=== PATIENT | female | born 2000 | race Caucasian/White ===

== ENCOUNTER 2021-11-21 17:04 | Emergency (ER) | payer OTHER, SELFPAY ==
[2021-11-21 17:22] VITALS: BP 121/97; PULSE 88; RESP 18; TEMP 36.8; O2SAT 100
--- NOTE | 2021-11-21 17:32 | ED.EAR ---
HPI - Ear Problem General Chief complaint: Ear Stated complaint: rt ear pain Time Seen by Provider: 11/21/21 17:30 Source: patient Mode of arrival: ambulatory History of Present Illness HPI Narrative: Amber Parker is a 1 yo female no PMH [facility] complaints of right ear pain that started today. She states she has some congestion and always has some minor sinus congestion that she occasionally takes Zyrtec or something like to control congestion; her ear started hurting sharply today Related Data Home Medications Medication Instructions Recorded Confirmed levonorgestrel [Mirena] 1 device INTRAUTERINE ONCE 11/21/21 11/21/21 Allergies Allergy/AdvReac Type Severity Reaction Status Date / Time No Known Allergies Allergy Verified 11/21/21 17:25 Review of Systems Review of Systems: CONSTITUTIONAL: Denies fever, chills, sweats. EYES: Denies visual changes, redness, discharge. ENT: Denies rhinorrhea, congestion, sore throat, right otalgia. CARDIOVASCULAR: Denies chest pain, palpitations, edema. RESPIRATORY: Denies dyspnea, wheezing, cough GASTROINTESTINAL: Denies abdominal pain, nausea, vomiting, diarrhea. GENITOURINARY: Denies dysuria, hematuria, abnormal discharge SKIN: Denies rash or itching. NEUROLOGIC: Denies numbness, or focal weakness. PSYCHIATRIC: Denies anxiety or depression. [facility] Social History Social History Smoking status: Never smoker Alcohol intake: never Substance use: never Gender identity (if verbalized by the patient): Female Comments At time of signature, I agree with nursing past medical, surgical, social and family history. There is no relevant family history pertinent to the presenting complaint. BP elevated at this visit Exam Narrative: GENERAL: This is a well-nourished, well-developed patient, in mild distress. HEAD: normocephalic, atraumatic. EYES: . Sclera clear/white. Vision is grossly intact. EARS: External ears normal, auditory canals clear on left, edematous on right with fluid behind TM and without drainage, Hearing grossly intact. NOSE: External nose normal without some nasal discharge, nares without redness, mild rhinorrhea. THROAT: Mucous membranes moist, NECK: Neck supple, non-tender CARDIOVASCULAR: Regular rate and rhythm without murmurs, gallops, or rubs. RESPIRATORY: Clear to auscultation. Breath sounds equal bilaterally. No wheezes, rales, or rhonchi. GASTROINTESTINAL: Not performed SKIN: warm, intact with no suspicious lesions or rash, good texture and turgor. NEURO: awake, alert, and oriented to person, place and time. There were no obvious focal neurologic abnormalities. Steady gait EXTREMITIES: Normal range of motion. BACK: Nontender without deformity Course Course Emergency Course: Patient comes with right ear pain started today and is sharp Right ear is erythematous with fluid behind TM Started on polymyxin eardrops May use light cottonball to keep her drops in place, ibuprofen or Tylenol for pain Level of Care: Express Care Visit Vital Signs Vital signs: Vital Signs Temperature 98.2 F 11/21/21 17:22 Pulse Rate 88 11/21/21 17:22 Respiratory Rate 18 11/21/21 17:22 Blood Pressure 121/97 H 11/21/21 17:22 Pulse Oximetry 100 11/21/21 17:22 Temperature 98.2 F 11/21/21 17:22 Pulse Rate 88 11/21/21 17:22 Respiratory Rate 18 11/21/21 17:22 Blood Pressure 121/97 H 11/21/21 17:22 Pulse Oximetry 100 11/21/21 17:22 Medical Decision Making Differential Diagnosis Differential Diagnosis: Otitis media versus otitis externa versus eustachian tube dysfunction Vital Signs Vital Signs: Vital Signs Temperature 98.2 F 11/21/21 17:22 Pulse Rate 88 11/21/21 17:22 Respiratory Rate 18 11/21/21 17:22 Blood Pressure 121/97 H 11/21/21 17:22 Pulse Oximetry 100 11/21/21 17:22 Temperature 98.2 F 11/21/21 17:22 Pulse Rate 88 11/21/21 1
== END 2021-11-21 17:42 | disposition home or self-care (01) ==
PROVIDERS: Emergency Provider Nurse Practitioner
DX: H66.001 Acute suppurative otitis media without spontaneous rupture of ear drum, right ear (principal)
CPT/HCPCS: 99213; G0463

== ENCOUNTER 2024-06-27 09:07 | Emergency (ER) | payer OTHER, SELFPAY ==
--- NOTE | ~2024-06-27 | XR_ITS ---
EXAMINATION: XR chest 2V DATE: 06/27/2024 09:44 INDICATION: Cough and shortness of breath. TECHNIQUE: Frontal and lateral views of the chest were obtained. COMPARISON: None. FINDINGS: There is no pneumonia, pleural effusion, or pneumothorax. The heart size is normal. IMPRESSION: 1. No acute cardiopulmonary disease. Reviewed, dictated and finalized at location B.
[2024-06-27 09:30] VITALS: BP 151/89; PULSE 88; RESP 18; TEMP 36.6; O2SAT 100
--- NOTE | 2024-06-27 09:36 | ED_ITS ---
HPI - URI/Sore Throat General Chief Complaint: Upper Respiratory Infection Stated Complaint: SOB Time Seen by Provider: 06/27/24 09:29 Source: patient and RN notes reviewed Mode of arrival: ambulatory Limitations: no limitations History of Present Illness HPI Narrative: Patient presents today with 2 week history of mild cough and shortness of breath with exertion. States her shortness of breath has been progressively worsening since onset. Patient is getting ready for half marathon and has been doing progressively longer runs and has been noticing the symptoms more frequently. Denies chest pain, fever, nasal congestion or any other upper respiratory symptoms. States her mother is a school nurse and gave her a back up inhaler , which helps her for very short periods of time. No history of asthma or COPD. She is a nonsmoker. Related Data Home Medications Medication Instructions Recorded Confirmed levonorgestrel 21 mcg/24 hr (up to 1 device intrauterine ONCE 11/21/21 06/27/24 8 years) 52 mg intrauterine device (Mirena) Allergies Allergy/AdvReac Type Severity Reaction Status Date / Time No Known Allergies Allergy Verified 06/27/24 09:19 Review of Systems Review of Systems: CONSTITUTIONAL: Denies body aches, fever, chills, or sweats. EYES: Denies visual changes, redness, or discharge. ENT: Denies rhinorrhea, congestion, sore throat, or otalgia. CARDIOVASCULAR: Denies chest pain, palpitations, or edema. RESPIRATORY: + cough, shortness of breath with exertion GASTROINTESTINAL: Denies abdominal pain, nausea, vomiting, or diarrhea. GENITOURINARY: Denies dysuria or hematuria. SKIN: Denies rash, itching, or wounds. MUSCULOSKELETAL: Denies back pain, joint pain, or myalgia. NEUROLOGIC: Denies headache, numbness, tingling, or weakness. PSYCH: Denies depression or anxiety. [facility] Past Medical History Medical History Anxiety Family History Family History Other Diabetes mellitus Malignant neoplasm of prostate Social History Social History Smoking status: Never smoker Alcohol intake: current Substance use: never Substance use type: does not use Do You Feel Safe in your Home?: Yes Lack of Transportation: No Lack of Food: Never True Current Housing: I Have Housing Concerned About Future Housing: No Difficulty Paying Gas/Electric Bills: No Difficulty Paying for Meds: No Currently Unemployed: No Education: High School Diploma/GED Difficulty w/ Childcare or Family Care: No Gender identity (if verbalized by the patient): Female Comments At time of signature, I have reviewed and agree with nursing past medical, surgical, social and family history unless otherwise noted. Please see nursing chart for further information. There is no relevant family history pertinent to the presenting complaint Exam Narrative: GENERAL: Well-appearing, well-nourished, and in no acute distress. HEAD: Normocephalic, atraumatic. EYES: EOMI. No redness or drainage. Conjunctivae normal. ENT: Mucous membranes pink and moist. Nares clear. No rhinorrhea. TMs normal bilaterally. Throat normal. Uvula midline. NECK: Normal AROM. Supple. No lymphadenopathy. CHEST: No respiratory distress. Clear to auscultation. HEART: Regular rate and rhythm. No murmur appreciated. MUSCULOSKELETAL: No bony tenderness. EXTREMITIES: Normal range of motion. No edema. SKIN: Warm, dry, no rash. Capillary refill normal. Normal skin turgor. NEURO: No focal deficits. Alert and oriented x3. Gait steady. PSYCH: Normal affect. No signs of depression or anxiety. Course Course Level of Care: Express Care Visit Vital Signs Vital signs: Vital Signs Temperature 98 F 06/27/24 09:30 Pulse Rate 88 06/27/24 09:30 Respiratory Rate 18 06/27/24 09:30 Blood Pressure 151/89 H 06/27/24 09:30 Pulse Oximetry 100 06/27/24 09:30 Oxygen Delivery Room Air 06/27/24 09:30 Temperature 98 F 06/27/24 09:30 Pulse Rate 88 06/27/24 09:30 Respiratory Rate 18 06/27/24 09:30 Blood Pressure 151/89 H 06/27/24 09:30 Pulse Oximetry 100 06/27/24 09:30 Oxygen Delivery Room Air 06/27/24 09:30 Reviewed MDM - URI/Sore Throat MDM Narrative Medical decision making narrative: Chest x-ray negative. Symptoms likely due to a bronchitis. Will treat with prednisone and albuterol inhaler. Do not recommend running long distances if short of breath. Anticipatory guidance given. Differential Diagnosis Differential diagnosis: Likely upper respiratory infection, bronchitis and other (Pneumonia) Imaging Data Radiologist's impression: ITS Impressions Chest X-Ray 06/27/24 09:52 IMPRESSION: 1. No acute cardiopulmonary disease. Critical Care Time Critical Care Time Critical Care Time: No Discharge Plan Discharge Clinical Impression: Bronchitis Patient Disposition: Home, Self-Care Condition: Stable Instructions: Acute Bronchitis (ED) Additional Instructions: Your chest x-ray is negative today. Take the prednisone and use albuterol inhaler as directed. If short of breath, do not continue to run long distances. Follow-up with your PCP in 1 week if symptoms persist. Go to the ER if symptoms worsen. Your blood pressure was elevated above 120/80 today at Urgent Care. This puts you above the threshold for follow up. Please schedule a followup visit with your personal physician as soon as possible, for further evaluation and treatment. Even blood pressure exceeding 120/80 may indicate pre-hypertension. Prescriptions: New prednisone 20 mg tablet 40 mg PO DAILY 5 Days Qty: 10 0RF albuterol sulfate 90 mcg/actuation HFA aerosol inhaler 2 inh inhalation Q4-6H PRN (Reason: shortness of breath or wheezing) Qty: 8.5 0RF (DME) B[employer]he[employer] MDI Spacer Spacer See Rx Instructions .ROUTE .MEDSUPPLY Qty: 1 0RF Rx Instructions: As directed No Action Mirena 20 mcg/24 hours (7 yrs) 52 mg Intrauterine Device 1 device INTRAUTERINE ONCE Follow-up/Referrals: Jose Juan,Leslee Hanna [Other] Time of Disposition: 10:03
== END 2024-06-27 10:04 | disposition home or self-care (01) ==
PROVIDERS: Emergency Provider Nurse Practitioner
DX: J40 Bronchitis, not specified as acute or chronic (principal)
CPT/HCPCS: 71046; 99213; G0463